=== PATIENT | male | born 1955 | race Caucasian/White ===

== ENCOUNTER 2017-08-01 17:35 | Emergency (ER) | payer BC ==
[~2017-08-01] VITALS: Ht 193 cm; Wt 91.4 kg
[~2017-08-01 17:35] MED LIST: NOHOMEMEDS
[2017-08-01 19:52] LABS: EOSINOPHIL (%) 1.3 % (0-5); EOSINOPHIL COUNT 0.1 K/uL (0-0.3); HEMATOCRIT 45.2 % (38.0-50.0); IMMATURE GRANULOCYTE (%) 0.3 % (0.0-0.7); LYMPHOCYTE COUNT 1.1 K/uL (1.0-2.8); MCH 29.4 PG (29.0-34.0); MCHC 33.4 G/DL (30.0-36.0); MCV 88.1 FL (86-99); MEAN PLAT.VOLUME 9.4 uM^3 (9.0-12.4); MONOCYTE COUNT 0.8 K/uL (0-0.8); NEUTROPHIL (%) 74.4 % (45-76); PLATELET COUNT 304 K/uL (156-360); RBC DIS.WIDTH-CV 11.9 % (11.8-14.6); RBC DIS.WIDTH-SD 38.5 % (39-53); RED BLOOD COUNT 5.13 M/uL (4.00-5.50)
[2017-08-01 20:00] LABS: CHLORIDE 104 mEq/L (99-109); POTASSIUM 3.4 mEq/L (3.7-5.4); SODIUM 143 mEq/L (136-147)
[2017-08-01 20:03] LABS: GLUCOSE 99 mg/dL (70-99)
[2017-08-01 20:04] LABS: ANION GAP 14 MEQ/L (2-14); TOTAL BILIRUBIN 0.4 mg/dL (0.0-1.0)
[2017-08-01 20:06] LABS: ALKALINE PHOSPHATASE 57 IU/L (3-129); GFR ESTIMATE (CALCULATED) > 59 mL/min/
[2017-08-01 20:07] LABS: UREA NITROGEN (BUN) 17 mg/dL (9-23)
[2017-08-01 20:15] LABS: TROP-I INTERPRETATION NEGATIVE; TROPONIN-I < 0.01 ng/mL (0.0-0.30)
[2017-08-01 21:58] LABS: ADD MIUA? YES; BILIRUBIN NEGATIVE; BLOOD MODERATE; COLOR YELLOW ((YELLOW)); GLUCOSE (STRIP) NEGATIVE; KETONES 5; LEUKOCYTES TRACE; NITRITE NEGATIVE; PROTEIN (STRIP) 30; SPECIFIC GRAVITY 1.028 (1.000-1.030)
[2017-08-01 22:05] LABS: BACTERIA RARE /HPF; EPITHELIAL CELLS RARE /HPF; MUCUS 1+ /LPF; RED BLOOD CELLS TNTC /HPF (0-5); UCUL ADDED? YES
[2017-08-01] MEDS ORDERED: ZITHROMAX Z-PA250 MG PO (22:46)
[2017-08-01 23:20] VITALS: BP 138/82
== END 2017-08-01 23:24 | disposition home or self-care (01) ==
LOC: EME 17:35
PROVIDERS: Emergency Medicine
DX: J18.9 Pneumonia, unspecified organism (principal); Z87.891 Personal history of nicotine dependence
CPT/HCPCS: 71020; 71275; 80053; 81003; 84484; 85025; 85379; 87040; 87086; 93005; 99281; 99285; J0456; J0696; J7050

== ENCOUNTER 2017-08-15 11:58 | Day surgery (SDC) | payer BC ==
[~2017-08-15 11:58] MED LIST changes: +METAXALL800 MG PO; +NAPROXEN500 MG PO; +PRILOSEC20 MG PO; +ULTRAM50 MG PO; +ZITHROMAX Z-PA250 MG PO
== END 2017-08-15 14:32 | disposition home or self-care (01) ==
LOC: PAIN 11:58 → SDC 12:30 → PAIN 14:32
DX: M47.814 Spondylosis without myelopathy or radiculopathy, thoracic region (principal); M54.6 Pain in thoracic spine; G89.29 Other chronic pain; M47.816 Spondylosis without myelopathy or radiculopathy, lumbar region; M51.37 Other intervertebral disc degeneration, lumbosacral region; K21.9 Gastro-esophageal reflux disease without esophagitis; Z87.891 Personal history of nicotine dependence; Z88.2 Allergy status to sulfonamides; Z79.891 Long term (current) use of opiate analgesic
CPT/HCPCS: J1030; J2250; J3010; S0020

== ENCOUNTER → 2017-10-10 | Day surgery (SDC) | payer BC ==
[~2017-10-10] VITALS: Ht 193 cm; Wt 86.4 kg
== END | disposition home or self-care (01) ==
LOC: PAIN 12:49 → SDC 13:15 → PAIN 13:15
PROC: 3E0T3TZ Introduction of Destructive Agent into Peripheral Nerves and Plexi, Percutaneous Approach (ICD-10-PCS; principal; 2017-10-10)
DX: M47.816 Spondylosis without myelopathy or radiculopathy, lumbar region (principal); M54.5 Low back pain; G89.29 Other chronic pain; M51.36 Other intervertebral disc degeneration, lumbar region; K21.9 Gastro-esophageal reflux disease without esophagitis; Z79.891 Long term (current) use of opiate analgesic; Z87.891 Personal history of nicotine dependence; Z88.2 Allergy status to sulfonamides
CPT/HCPCS: J1030; J2250; J3010; S0020

== ENCOUNTER 2017-10-31 11:53 | Day surgery (SDC) | payer BC | END 2017-10-31 13:47 | disposition home or self-care (01) | LOC: PAIN 11:53 → SDC 12:30 → PAIN 12:30 | DX: M47.816 Spondylosis without myelopathy or radiculopathy, lumbar region (principal); M54.5 Low back pain; Z88.1 Allergy status to other antibiotic agents; Z88.2 Allergy status to sulfonamides | CPT/HCPCS: J1030; J2250; J3010; S0020 ==

== ENCOUNTER 2017-11-15 09:50 | Day surgery (SDC) | payer BC ==
[~2017-11-15] VITALS: Ht 193 cm; Wt 86.2 kg
[~2017-11-15 09:50] MED LIST changes: +ADVIL COLD &1 TABLET PO; +NORCO 5/3251 TABLET PO
== END 2017-11-15 11:12 | disposition home or self-care (01) ==
LOC: PAIN 09:50 → SDC 10:30 → PAIN 11:12
DX: M47.814 Spondylosis without myelopathy or radiculopathy, thoracic region (principal); M54.6 Pain in thoracic spine; G89.29 Other chronic pain; M47.816 Spondylosis without myelopathy or radiculopathy, lumbar region; Z79.891 Long term (current) use of opiate analgesic; Z87.891 Personal history of nicotine dependence
CPT/HCPCS: J1030; J2250; J3010; S0020

== ENCOUNTER 2018-05-04 11:08 | Day surgery (SDC) | payer OTHER ==
[~2018-05-04] VITALS: Ht 193 cm; Wt 86.2 kg
[~2018-05-04 11:08] MED LIST changes: +INDOCIN SR75 MG PO
== END 2018-05-04 12:46 | disposition home or self-care (01) ==
LOC: PAIN 11:08
DX: M54.12 Radiculopathy, cervical region (principal); G89.4 Chronic pain syndrome; M51.37 Other intervertebral disc degeneration, lumbosacral region; M47.816 Spondylosis without myelopathy or radiculopathy, lumbar region; Z88.1 Allergy status to other antibiotic agents; Z88.2 Allergy status to sulfonamides
CPT/HCPCS: J1100; J2250

== ENCOUNTER 2018-06-08 10:46 | Day surgery (SDC) | payer OTHER ==
[~2018-06-08] VITALS: Ht 193 cm; Wt 86.2 kg
[~2018-06-08 10:46] MED LIST changes: +NAPROSYN500 MG PO
== END 2018-06-08 12:20 | disposition home or self-care (01) ==
LOC: PAIN 10:46 → SDC 11:15 → PAIN 12:20
DX: M50.13 Cervical disc disorder with radiculopathy, cervicothoracic region (principal); M51.37 Other intervertebral disc degeneration, lumbosacral region; K21.9 Gastro-esophageal reflux disease without esophagitis; G89.4 Chronic pain syndrome; M47.816 Spondylosis without myelopathy or radiculopathy, lumbar region; M47.814 Spondylosis without myelopathy or radiculopathy, thoracic region; Z87.891 Personal history of nicotine dependence; Z79.891 Long term (current) use of opiate analgesic; Z88.2 Allergy status to sulfonamides; Z88.1 Allergy status to other antibiotic agents
CPT/HCPCS: J1100; J2250; J3010

== ENCOUNTER 2018-07-06 09:42 | Day surgery (SDC) | payer OTHER ==
[~2018-07-06] VITALS: Ht 193 cm; Wt 86.2 kg
[~2018-07-06 09:42] MED LIST changes: +HYDROCODON-ACE1 EAC7 PO; +MAXALT5 MG PO
== END 2018-07-06 11:22 | disposition home or self-care (01) ==
LOC: PAIN 09:42
DX: M47.814 Spondylosis without myelopathy or radiculopathy, thoracic region (principal); M47.894 Other spondylosis, thoracic region; M47.816 Spondylosis without myelopathy or radiculopathy, lumbar region; M47.812 Spondylosis without myelopathy or radiculopathy, cervical region; G89.4 Chronic pain syndrome; M51.37 Other intervertebral disc degeneration, lumbosacral region; Z79.891 Long term (current) use of opiate analgesic; Z88.2 Allergy status to sulfonamides; Z88.1 Allergy status to other antibiotic agents; Z88.8 Allergy status to other drugs, medicaments and biological substances; Z87.891 Personal history of nicotine dependence
CPT/HCPCS: J1030; J2250; J3010; S0020